=== PATIENT | male | born 1970 | race Caucasian/White ===

== ENCOUNTER 2022-07-09 12:50 | Outpatient (CLI) | payer OTHER, SELFPAY | END 2022-07-09 12:51 | disposition home or self-care (01) | LOC: RAD 12:52 | PROVIDERS: PCP Internal Medicine; Visit Provider Internal Medicine | DX: Z82.49 Family history of ischemic heart disease and other diseases of the circulatory system (principal) | CPT/HCPCS: 93306 ==

== ENCOUNTER 2024-07-03 09:09 | Outpatient (CLI) | payer OTHER, SELFPAY | END 2024-07-03 09:10 | disposition home or self-care (01) | LOC: NFLDREF 09:11 | PROVIDERS: PCP Internal Medicine; Visit Provider Family Medicine | DX: E78.5 Hyperlipidemia, unspecified (principal); Z12.5 Encounter for screening for malignant neoplasm of prostate | CPT/HCPCS: 80053; 80061; G0103 ==

== ENCOUNTER 2024-09-05 13:56 | Outpatient (CLI) | payer OTHER, SELFPAY | END 2024-09-05 13:57 | disposition home or self-care (01) | LOC: CT 13:57 | PROVIDERS: PCP Internal Medicine; Visit Provider Family Medicine | DX: R93.89 Abnormal findings on diagnostic imaging of other specified body structures (principal); R91.8 Other nonspecific abnormal finding of lung field | CPT/HCPCS: 71260; Q9967 ==